=== PATIENT | female | born 1980 | race Two or more races ===

== ENCOUNTER 2020-09-21 19:44 | Emergency (ER) | payer SELFPAY ==
[~2020-09-21] VITALS: Ht 157.5 cm; Wt 64.0 kg
[2020-09-21] MEDS ORDERED: IBUPROFEN 600MG TABLET PO ONE (23:30)
[2020-09-22 00:48] LABS: BASOPHILS % 0.3 % (0.0-2.0); EOSINOPHILS % 0.1 % (0.0-5.0); HEMATOCRIT. 36.7 % (36.0-48.0); HEMOGLOBIN. 12.2 g/dL (12.0-16.0); LYMPHOCYTES % 10.7 % (20.0-50.0); MEAN CORPUSCULAR HEMOGLOBIN 26.8 pg (28.0-32.0); MEAN CORPUSCULAR VOLUME 80.8 fL (81.0-99.0); MEAN PLATELET VOLUME 9.7 fl (7.4-10.4); MONOCYTES % 7.9 % (2.0-8.0); PLATELET 315 x1000/uL (130-400); RED BLOOD CELL COUNT 4.54 mill/uL (4.2-5.4); RED CELL DISTRIBUTION WIDTH 13.4 % (11.6-14.6)
[2020-09-22 00:57] LABS: CHLORIDE 104 mEq/L (98-107)
[2020-09-22 01:13] VITALS: BP 136/84
[2020-09-22 04:20] LABS: CLARITY URINE CLOUDY (CLEAR); COLOR URINE YELLOW (YELLOW); KETONES URINE 1+ (NEGATIVE); LEUKOCYTE ESTERASE URINE 3+ (NEGATIVE); NITRITE URINE POSITIVE (NEGATIVE); OCCULT BLOOD URINE 2+ (NEGATIVE); PROTEIN URINE 1+ (NEGATIVE); SPECIFIC GRAVITY URINE 1.015 (1.005-1.030)
[2020-09-22] MEDS ORDERED: CEFTRIAXONE SODIUM 500 MG/VIAL IM ONE (04:45)
[2020-09-22] MEDS ORDERED: IBUP-2028 MT (04:51)
[2020-09-22] MEDS ORDERED: CEPH500T MT (04:51)
== END 2020-09-22 06:13 | disposition home or self-care (01) ==
LOC: ER 19:44
DX: N12 Tubulo-interstitial nephritis, not specified as acute or chronic (principal); Z86.73 Personal history of transient ischemic attack (TIA), and cerebral infarction without residual deficits; Z79.899 Other long term (current) drug therapy
CPT/HCPCS: 36415; 80053; 81003; 83690; 85025; 87077; 87086; 87186; 93005; 96372; 99284; J0696